=== PATIENT | female | born 1985 | race African-American/Black ===

== ENCOUNTER 2018-09-26 15:57 | Emergency (ER) | payer OTHER ==
[~2018-09-26] VITALS: Ht 167.6 cm; Wt 104.3 kg
[~2018-09-26 15:57] MED LIST: INTRA UTERINE DEVICE
[2018-09-26 17:07] VITALS: BP 137/109
[2018-09-26] MEDS ORDERED: ALBUTEROL SULF 2.5 MG/0.5ML(0.5%) NEB SOLN NEB ONE (18:00)
[2018-09-26] MEDS ORDERED: IPRATROPIUM BROM 0.5 MG/2.5ML INH SOL NEB ONE (18:00)
--- NOTE | 2018-09-26 18:15 | NUR ---
PT GIVEN 5MG ALBUTEROL AND 1 MG ATROVENT NEB TX. UNABLE TO DOCUMENT IN SYSTEM AND eMAR. PT NAREN TX WELL. BS CLEAR AND DIMINISHED, SPO2 98% ON RA.
== END 2018-09-26 18:28 | disposition home or self-care (01) ==
LOC: ER 15:57
DX: J45.909 Unspecified asthma, uncomplicated (principal); F17.200 Nicotine dependence, unspecified, uncomplicated
CPT/HCPCS: 71046; 94640; 99283; J7611; J7644

== ENCOUNTER 2019-06-18 09:25 | Emergency (ER) | payer OTHER ==
[~2019-06-18] VITALS: Ht 167.6 cm; Wt 99.8 kg
[2019-06-18 09:40] VITALS: BP 104/67
== END 2019-06-18 10:42 | disposition home or self-care (01) ==
LOC: ER 09:25
DX: J03.90 Acute tonsillitis, unspecified (principal); F17.200 Nicotine dependence, unspecified, uncomplicated; J45.909 Unspecified asthma, uncomplicated